=== PATIENT | female | born 1980 | race Caucasian/White ===

== ENCOUNTER → 2020-05-06 | Outpatient (CLI) | payer OTHER ==
[~2020-05-06] MED LIST: CA C1TAB42 PO; CINN500C2 PO; CYAN500T54 PO; FLUT9.9S NS; L.AC1CAP6 PO; LICORICE ROOT PO; LORA10TA75 PO; MILK150C2 PO; PANT20TA4 PO; SELE200T10 PO; THYR15TA PO; THYR90TA PO; Turmeric PO; Vitamin A PO; [UNRECOGNIZED DRUG - OTHER] PO; [UNRECOGNIZED DRUG - OTHER] PO; [UNRECOGNIZED DRUG - OTHER] PO
[2020-05-06 10:55] LABS: BASOPHILS % (AUTO) 1 % (0-1); EOSINOPHILS % (AUTO) 2 % (1-7); LYMPHOCYTES % (AUTO) 26 % (22-44); MEAN CORPUSCULAR HEMOGLOBIN 28.5 pg (27.0-34.8); MEAN CORPUSCULAR HGB CONC 32.8 g/dL (32.4-35.8); MONOCYTES % (AUTO) 7 % (2-9); NEUTROPHILS % (AUTO) 65 % (42-75); PLATELET COUNT 292 x10^3/uL (130-400); RED BLOOD COUNT 5.09 x10^6/uL (3.82-5.3); RED CELL DISTRIBUTION WIDTH 15.2 % (9.6-15.2)
[2020-05-06 10:58] LABS: MD NO
[2020-05-06 11:04] LABS: ALBUMIN 3.9 g/dL (3.4-5.0); ANION GAP 5 mmol/L (5-15); CALCIUM 9.8 mg/dL (8.5-10.1); CHLORIDE 110 mmol/L (98-107)
[2020-05-06 11:06] LABS: MICROSCOPIC INDICATED
[2020-05-06 11:09] LABS: ALANINE AMINOTRANSFERASE 150 U/L (12-78); ALKALINE PHOSPHATASE 119 U/L (45-117); BILIRUBIN,TOTAL 0.4 mg/dL (0.2-1.0); CREATININE 0.78 mg/dL (0.55-1.02)
== END | disposition home or self-care (01) ==
LOC: STAR 09:12
PROVIDERS: ATTEND Obstetrics & Gynecology
DX: Z01.818 Encounter for other preprocedural examination (principal); N94.6 Dysmenorrhea, unspecified; N92.0 Excessive and frequent menstruation with regular cycle
CPT/HCPCS: 36415; 80053; 81001; 84702; 85025; 87086

== ENCOUNTER 2020-05-14 10:28 | Day surgery (SDC) | payer OTHER ==
[~2020-05-14] VITALS: Ht 160 cm; Wt 96.2 kg
[2020-05-14 11:21] LABS: HCG UR SG 1.017 (1.003-1.030)
[2020-05-14] MEDS ORDERED: CHLORHEXIDINE 15 ML UDC ONE (11:30)
[2020-05-14] MEDS ORDERED: SODIUM CHLORIDE 0.9% 1,000 ML IV SCH (11:30)
[2020-05-14] MEDS ORDERED: CHLORHEXIDINE 15 ML UDC MM ONE (11:30)
[2020-05-14] MEDS ORDERED: BUPIVACAINE/PF 0.25% ONE ×2 (11:42→13:52)
[2020-05-14] MEDS ORDERED: EPINEPHRINE 1 MG/ML, 1ML ONE ×2 (11:42→13:52)
[2020-05-14] MEDS ORDERED: FLUORESCEIN SODIUM 500 MG/5 ML ONE (11:42)
[2020-05-14] MEDS ORDERED: LACTATED RINGERS 1,000 ML IV SCH (12:00)
[2020-05-14] MEDS ORDERED: FENTANYL PF 250 MCG/5ML ONE ×3 (12:09→14:19)
[2020-05-14] MEDS ORDERED: MIDAZOLAM 1 MG/ML, 2ML ONE (12:09)
[2020-05-14] MEDS ORDERED: SCOPOLAMINE 1MG PATCH TD ONE ×2 (12:29)
[2020-05-14] MEDS ORDERED: morphine SULFATE 10 MG/ML, 1ML IVPush PRN (12:30)
[2020-05-14] MEDS ORDERED: FENTANYL PF 100 MCG/2ML IV PRN (12:30)
[2020-05-14] MEDS ORDERED: hydrALAzine 20 MG/ML, 1ML IV PRN (12:30)
[2020-05-14] MEDS ORDERED: OXYcodone 5 MG/5 ML ORAL.SOL UDC PO PRN (12:30)
[2020-05-14] MEDS ORDERED: LABETALOL 5MG/ML, 20ML IV PRN (12:30)
[2020-05-14] MEDS ORDERED: HYDROmorphone 1 MG/ML, 1ML INJ IVPush PRN (12:30)
[2020-05-14] MEDS ORDERED: HALOPERIDOL 5 MG/ML IV PRN (12:30)
[2020-05-14] MEDS ORDERED: ACETAMINOPHEN 325 MG TABLET PO PRN (12:30)
[2020-05-14] MEDS ORDERED: MEPERIDINE/PF 25MG/0.5ML IVPush PRN (12:30)
[2020-05-14] MEDS ORDERED: PROMETHAZINE 25 MG/ML, 1ML IVPush PRN (12:30)
[2020-05-14] MEDS ORDERED: CEFAZOLIN 1,000 MG ONE (12:41)
[2020-05-14] MEDS ORDERED: GLYCOPYRROLATE 0.2MG/1ML, 5ML ONE (12:41)
[2020-05-14] MEDS ORDERED: DEXAMETHASONE 4 MG/ML, 1ML ONE (12:41)
[2020-05-14] MEDS ORDERED: NEOSTIGMINE 1 MG/ML, 10ML ONE (12:41)
[2020-05-14] MEDS ORDERED: PROPOFOL 10 MG/ML, 20ML ONE (12:41)
[2020-05-14] MEDS ORDERED: ROCURONIUM 10MG/ML,5ML ONE (12:41)
[2020-05-14] MEDS ORDERED: ONDANSETRON 2MG/ML, 2ML ONE (12:41)
[2020-05-14] MEDS ORDERED: KETOROLAC 30 MG/1 ML ONE (12:45)
[2020-05-14] MEDS ORDERED: ACETAMINOPHEN 650 MG/20.3 ML UDC ONE (15:28)
[2020-05-14] MEDS ORDERED: OXYcodone 5 MG/5 ML ORAL.SOL UDC ONE (15:28)
== END 2020-05-14 17:30 | disposition home or self-care (01) ==
LOC: OUT 10:28
PROVIDERS: ATTEND Obstetrics & Gynecology
DX: N94.6 Dysmenorrhea, unspecified (principal); Z20.828 Contact with and (suspected) exposure to other viral communicable diseases; N92.0 Excessive and frequent menstruation with regular cycle; N83.8 Other noninflammatory disorders of ovary, fallopian tube and broad ligament; R10.2 Pelvic and perineal pain; K21.9 Gastro-esophageal reflux disease without esophagitis; E03.9 Hypothyroidism, unspecified; E66.9 Obesity, unspecified; Z68.37 Body mass index [BMI] 37.0-37.9, adult; Z79.890 Hormone replacement therapy; Z79.899 Other long term (current) drug therapy; Z90.49 Acquired absence of other specified parts of digestive tract
CPT/HCPCS: 36415; 58552; 81025; 86850; 86900; 87635; 88307; J0171; J0690; J1100; J1885; J2250; J2405; J2704; J2710; J3010; J7120